=== PATIENT | female | born 1970 | race Two or more races ===

== ENCOUNTER 2024-01-26 15:19 | Outpatient (REF) | payer OTHER, SELFPAY ==
[2024-01-26 17:24] LABS: MANUAL DIFF FLAG NO
[2024-01-26 17:26] LABS: Hematocrit 40.8 % (37.0-47.0); Hemoglobin 13.8 g/dl (12.0-16.0); Imm Gran Abs Auto 0.02 X10*3/uL (0.00-0.03); Imm Gran Pct Auto 0.4 % (0.0-0.4); Lymphocytes Absolute Auto 0.8 X10*3/uL (1.2-4.9); Lymphocytes Percent Auto 13.4 % (20-40); Mean Corpuscular HGB Conc 33.8 g/dl (31.0-35.0); Mean Corpuscular Hemoglobin 31.2 pg (27.0-33.0); Mean Corpuscular Volume 92.1 fL (80.0-98.0); Monocytes Absolute Auto 0.1 X10*3/uL (0.1-1.2); Monocytes Percent Auto 1.9 % (2-11); Neutrophils Absolute Auto 4.8 x10*3/uL (2.0-8.3); Neutrophils Percent Auto 84.3 % (45-73); Platelet Count 309 X10*3/uL (160-400); Red Blood Count 4.43 X10*6/uL (4.20-5.50); Red Cell Distribution Width 12.5 % (11.0-16.0); White Blood Count 5.7 X10*3/uL (4.8-10.8)
[2024-01-26 17:40] LABS: Appearance Urine Cloudy; Color Urine Yellow; Glucose Urine UA Negative (Negative); Leukocyte Esterase Urine Moderate (2+) (Negative); Nitrite Urine Negative (Negative); UMIC TRIGGER UACC YES; Urine Blood Moderate (2+) (Negative); Urine Ketones Negative (Negative); Urine Protein Negative (Neg-Trace)
[2024-01-26 17:42] LABS: Alanine Aminotransferase 37 U/L (0-31); Albumin Level 4.6 g/dL (3.5-5.0); Alkaline Phosphatase 100 U/L (39-117); Anion Gap 12 (12-20); Aspartate Amino Transferase 35 U/L (5-31); Bilirubin Total 0.2 mg/dL (0.0-1.0); Blood Urea Nitrogen 10 mg/dL (9-16); Calcium 9.7 mg/dL (8.4-10.2); Carbon Dioxide 29 mmol/L (22-29); Chloride 103 mmol/L (96-108); Estimated Glomerular Filt Rate > 60; Glucose Random 126 mg/dL (60-115); Potassium 4.1 mmol/L (3.3-5.1); Sodium 140 mmol/L (135-145); Total Protein 8.2 g/dL (6.5-8.0)
[2024-01-26 17:48] LABS: Bacteria Urine None Seen (None Seen); Hyaline Casts Urine 0-2 /LPF (0-2); UACC Culture Trigger YES; WBC Urine >50 /HPF (0-5)
[2024-01-27 11:46] LABS: Bacterial Vaginosis PCR NEGATIVE (Negative); Candida Group PCR NOT DETECTED (Not Detect); Candida glab krusei PCR NOT DETECTED (Not Detect); Trichomonas vaginalis PCR NOT DETECTED (Not Detect)
[2024-01-27 14:01] LABS: CT PCR NOT DETECTED (Not Detect.); NG PCR NOT DETECTED (Not Detect.)
== END 2024-01-26 15:20 | disposition home or self-care (01) ==
LOC: HO.CHCLDS 15:19
PROVIDERS: Visit Provider Internal Medicine
DX: N39.0 Urinary tract infection, site not specified (principal); R10.32 Left lower quadrant pain
CPT/HCPCS: 0352U; 80053; 81001; 85025; 87086; 87491; 87591

== ENCOUNTER 2024-01-29 08:29 | Outpatient (REF) | payer MEDICAID, OTHER, SELFPAY ==
--- NOTE | ~2024-01-29 | US_ITS ---
EXAMINATION: US LEFT, LIMITED/FOLLOW UP CLINICAL INFORMATION: Worsening left lower quadrant pain and tenderness, no known history of injury or trauma to area. Pain wraps around pelvis just inferior to left of umbilicus and extends laterally around the lower back and hip region COMPARISON: None available. TECHNIQUE: Targeted ultrasound images were obtained by the movie projectionist of the area of concern as indicated by the patient along bilateral left pelvis and lower back/hip. Radiologist was not in attendance. Images were later provided for interpretation. FINDINGS: No discrete mass or fluid collection identified in the area of concern indicated by the patient in the left lower quadrant/lateral hip region. Limited visualization due to bowel gas and body habitus. US/US pelvic limited IMPRESSION: No discrete mass or fluid collection identified in the area of concern indicated by the patient in the left lower quadrant/lateral hip region. Limited visualization due to bowel gas and body habitus. CT scan or MRI should be considered for further evaluation based on the clinical assessment. Electronically signed by: Romi Koch MD 02/02/2024 06:22 AM [facility]
== END 2024-01-29 08:30 | disposition home or self-care (01) ==
LOC: HO.HMGCX 08:29
PROVIDERS: PCP Internal Medicine; Visit Provider Internal Medicine
DX: R10.32 Left lower quadrant pain (principal)
CPT/HCPCS: 76857

== ENCOUNTER 2024-01-29 09:56 | Outpatient (REF) | payer MEDICAID, OTHER, SELFPAY ==
[2024-01-29 14:47] LABS: Estimated Average Glucose 108 mg/dL; Hemoglobin A1C 110.5452 umol/L; Hemoglobin A1c % 5.4 % (<6.0); Total Hemoglobin (HGBA1C) 3104.9632 umol/L
[2024-01-30 03:39] LABS: HBS Num1 0.54 mIU/mL (0-7.99); HBc Num1 0.08 S/CO (0.00-0.79); HBsAGNum1 0.39 S/CO (0.00-0.99); Hepatitis B Core Antibody Nonreactive (Nonreactive); Hepatitis B Surface Antigen Negative (Negative); ~HepC Num1 0.05 S/CO (0.00-0.79); ~Hepatitis B Surface Antibody NONREACTIVE (Nonreactive); ~Hepatitis C Antibody Nonreactive (Nonreactive)
== END 2024-01-29 09:57 | disposition home or self-care (01) ==
LOC: HO.CHCLDS 09:56
PROVIDERS: Visit Provider Internal Medicine
DX: R73.9 Hyperglycemia, unspecified (principal)
CPT/HCPCS: 36415; 83036; 86704; 86706; 86803; 87340